=== PATIENT | female | born 1970 | race Caucasian/White ===

== ENCOUNTER → 2021-03-16 | Outpatient (CLI) | payer BC ==
[2021-03-17 12:35] LABS: Cow's Milk IgE Class CLASS 0; Egg White IgE <0.10 kU/L (<0.10); Peanut IgE 0.13 kU/L (<0.10); Potato IgE <0.10 kU/L (<0.10); Potato IgE Class CLASS 0; Soybean IgE <0.10 kU/L (<0.10)
== END | disposition home or self-care (01) ==
LOC: LABWHC1 15:35
PROVIDERS: ATTEND Otolaryngology
DX: J30.89 Other allergic rhinitis (principal)
CPT/HCPCS: 36415; 86003

== ENCOUNTER → 2021-03-16 | Outpatient (CLI) | payer BC ==
[2021-03-16 14:51] VITALS: BP 127/80; PULSE 92; RESP 16; TEMP 98.6
--- NOTE | 2021-03-16 15:57 | P.HPOB ---
History of Present Illness H&P Date: 03/16/21 Chief Complaint: The patient is here for her routine gynecologic exam. This is a 50-year-old with an LMP of 2010. The patient is here to establish with this office. Her is status post vasectomy. She is status post endometrial ablation and has been amenorrheic since then. She has occasional episodes of feeling warm at night, but otherwise has not had significant hot flashes. She has been experiencing some itching at the anterior midline aspect at the apex of the labia minora approximately 3 cm superior to the clitoris. She states this itching has been noticeable for about 2-1/2 years. She does not notice any visual lesion in this area. In the past she has scratched it so much that it did bleed. She is otherwise without complaints. Review of Systems The patient has lost 10 pounds over the last year. This has been intentional. She denies respiratory, cardiac, or G.I. problems. Past Medical History Past Medical History: No Reported History Additional Past Medical History / Comment(s): Food and latex ALLERGIES. 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 History of Any Multi-Drug Resistant Organisms: None Reported Past Surgical History: Section, Tonsillectomy, Uterine Ablation Additional Past Surgical History / Comment(s): section 2. Endometrial ablation 2010. Colonoscopy 2019(next after 5yr). Past Psychological History: No Psychological Hx Reported Smoking Status: Never smoker Past Alcohol Use History: Occasional (3 or 4 per week) Past Drug Use History: None Reported Additional History: She has been since 2010 and this is her second marriage. 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 - Past Family History Father Family Medical History: Cancer, Hyperlipidemia, Hypertension Additional Family Medical History / Comment(s): Bladder cancer. Mother Family Medical History: Diabetes Mellitus Additional Family Medical History / Comment(s): Prediabetic. Maternal grandfather had diabetes. Medications and Allergies Home Medications Medication Instructions Recorded Confirmed Type No Known Home Medications 03/16/21 03/16/21 History Allergies Allergy/AdvReac Type Severity Reaction Status Date / Time morphine Allergy Vomiting Unverified 03/16/21 14:52 Exam Vital Signs Temp Pulse Resp BP Pulse Ox 03/16/21 14:42 98.6 F 92 16 127/80 99 Intake and Output 03/16/21 03/16/21 03/16/21 06:59 14:59 22:59 Other: Weight 65.317 kg Height 5 feet 3-1/2 inches, weight 144 pounds, BMI 25.1. This is a well-developed well-nourished white female who is alert and oriented times 3 in no acute distress. HEENT: Within normal limits. NECK: Supple without mass or thyromegaly. CHEST AND LUNGS: Clear to auscultation. HEART: Regular rate and rhythm. BREASTS: Are without mass or discharge. AXILLARY EXAM: Negative for adenopathy. BACK: Negative for CVA tenderness. ABDOMEN: Soft, nontender, without palpable masses. PELVIC EXAM: External genitalia reveals mild atrophy with no pallor. At the anterior apex where the labia majora come together (approximately 3 cm anterior to the clitoris), there is an area that appears scratched with minimal erythema and it does not appear excoriated. This appears benign without any suspicious- appearing abnormality. There is no ulceration and is is not raised or indurated. Cervix and vagina appear normal with mild atrophy. There is no unusual discharge. There is no evidence of prolapse. The uterus is midposition, nongravid size and nontender. There are no palpable adnexal masses or tenderness. RECTAL EXAM: negative for mass or tenderness and is negative for occult blood. EXTREMITIES: Nontender. IMPRESSION: 1. 50-year-old perimenopausal female whose is status post vasectomy with area of nonspecific vulvitis where she has been experiencing chronic pruritus. This is at the anterior apex of the labia majora in the midline. T his appears benign with no discrete lesion. 2. Amenorrhea following her endometrial ablation in 2010. PLAN: 1. Pap smear cotest was performed. 2. Self breast awareness was discussed with the patient. We have reviewed symptoms that can be associated with inflammatory breast cancer. 3. Screening mammogram is scheduled for 03/18/2021 at [facility]. In order slip was given to the patient for this. 4. Kenalog 0.1% cream twice a day to the area of vulvar pruritus as needed. The patient was instructed to avoid over washing with soap, scratching or rubbing. She can use a moisturizing cream as needed to avoid dryness. If symptoms are not improving she was instructed to call for an appointment for reevaluation and possible biopsy. The electronic prescription will be sent to [facility] pharmacy in [place]. 5. She has not received a Covid vaccination since she had Covid in July 2020 and did have antibodies with a later testing. 6. She was advised to return in one year for her annual well woman exam and as needed.
== END ==
LOC: WWCWWP 14:14
PROVIDERS: ATTEND Obstetrics & Gynecology
DX: L29.2 Pruritus vulvae (principal); N91.2 Amenorrhea, unspecified; Z98.890 Other specified postprocedural states; Z88.5 Allergy status to narcotic agent

== ENCOUNTER → 2022-05-24 | Outpatient (CLI) | payer BC ==
[2022-05-24 09:29] VITALS: BP 107/65; PULSE 80; RESP 19; TEMP 97.8
--- NOTE | 2022-05-24 10:10 | P.HPOB ---
History of Present Illness H&P Date: 05/24/22 Chief Complaint: The patient is here for her routine gynecologic exam and ma mmogram. This is a 52-year-old with an LMP of 2010. Her is status post vasectomy. She is status post endometrial ablation in 2010 and has been amenorrheic since then. She is without gynecologic complaints. She denies any significant hot flashes. She denies any vaginal bleeding. She states she had an episode of pelvic pain in January 2022. This did resolve. At that time she did have a pelvic ultrasound on 01/27/2022 which showed a 1.6 cm uterine fibroid and was otherwise unremarkable. This was done at a [facility] near [address] She was treated last year with Kenalog cream for vulvar itching. She has noticed that she does not have this itching when she eats a low gluten diet. She may notice some itching if she does eat foods with gluten. She'll occasionally uses a hydrocortisone-type cream as prescribed by her PCP, but this is infrequent. Review of Systems The patient's weight has been stable over the last year. She denies r espiratory, cardiac, or G.I. problems. Past Medical History Past Medical History: No Reported History Additional Past Medical History / Comment(s): Chronic neck pain. Food and latex ALLERGIES. 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 History of Any Multi-Drug Resistant Organisms: None Reported Past Surgical History: Section, Tonsillectomy, Uterine Ablation Additional Past Surgical History / Comment(s): section 2. Endometrial ablation 2010. Colonoscopy 2019(next after 5yr). Past Psychological History: No Psychological Hx Reported Smoking Status: Never smoker Past Alcohol Use History: Occasional (2 per week) Past Drug Use History: None Reported Additional History: She has been since 2010 and this is her second marriage. 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 - Past Family History Father Family Medical History: Cancer, Hyperlipidemia, Hypertension Additional Family Medical History / Comment(s): Bladder cancer. Mother Family Medical History: Diabetes Mellitus Additional Family Medical History / Comment(s): Prediabetic. Maternal grandfather had diabetes. Medications and Allergies Home Medications Medication Instructions Recorded Confirmed Type Triamcinolone 0.1% Cream [Kenalog 1 applicatio TOPICAL BID PRN #30 gm 03/16/21 05/24/22 Rx 0.1% Cream] Atorvastatin [Lipitor] 20 mg PO HS 05/24/22 05/24/22 History Allergies Allergy/AdvReac Type Severity Reaction Status Date / Time banana Allergy Rash/Hives Unverified 05/24/22 09:23 kiwi Allergy Unknown Unverified 05/24/22 09:23 latex Allergy Rash/Hives Unverified 05/24/22 09:23 morphine Allergy Vomiting Unverified 05/24/22 09:22 Exam Vital Signs Temp Pulse Resp BP Pulse Ox 05/24/22 09:26 97.8 F 80 19 107/65 99 Intake and Output 05/23/22 05/24/22 05/24/22 22:59 06:59 14:59 Other: Weight 66.224 kg Height 5 feet 4 inches, weight 146 pounds, BMI 25.1. This is a well-developed well-nourished white female who is alert and oriented times 3 in no acute distress. HEENT: Within normal limits. NECK: Supple without mass or thyromegaly. CHEST AND LUNGS: Clear to auscultation. HEART: Regular rate and rhythm. BREASTS: Are without mass or discharge. There is mild right breast tenderness. She states she notices occasional breast tenderness. AXILLARY EXAM: Negative for adenopathy. BACK: Negative for CVA tenderness. ABDOMEN: Soft, nontender, without palpable masses. PELVIC EXAM: Normal external genitalia with mild atrophy. Cervix and vagina appear normal with minimal atrophy. There is no unusual discharge. There is no evidence of prolapse. The uterus is midposition, nongravid size and nontender. There are no palpable adnexal masses or tenderness. RECTAL EXAM: Rectovaginal exam is negative for mass or tenderness and is negative for occult blood. EXTREMITIES: Nontender. IMPRESSION: 1. 52-year-old perimenopausal female who has been amenorrheic since her endometrial ablation, with normal gynecologic exam. 2. History of uterine fibroid measuring 1.6 cm by pelvic ultrasound done on 01/27/2022. PLAN: 1. Pap smear was deferred since she had a normal Pap smear cotest on 03/16/2021. 2. Self breast awareness was discussed with the patient. We have also discussed symptoms associated with inflammatory breast cancer. 3. Screening mammogram will be done today. 4. Osteoporosis prevention was discussed. I have stressed the importance of adequate calcium, vitamin D and regular exercise. Recommended amounts of calcium and vitamin D were also discussed. 5. The patient will keep a symptom calendar if she has recurrent pelvic pains like she did in January of this year. She will call if problems. 6. She was advised to return in one year for her annual well woman exam and as needed.
--- NOTE | 2022-05-25 09:56 | MM ---
Reason for Exam: Screening (asymptomatic). Last mammogram was performed 1 year(s) and 2 month(s) ago. Patient History: Last menstrual period: 03/08/2011 Risk Values: Daniela 5 year model risk: 0.7%. NCI Lifetime model risk: 5.9%. Prior Study Comparison: 03/02/2020 Bilateral MG 3D screening mammo w/cad, [facility]. 03/18/2021 Bilateral MG 3D screening mammo w/cad, [facility]. Tissue Density: The breast tissue is heterogeneously dense. This may lower the sensitivity of mammography. Findings: Analyzed By CAD. There is no suspicious group of microcalcifications or new suspicious mass in either breast. No significant change from prior exams. Overall Assessment: Negative, BI-RAD 1 Management: Screening Mammogram of both breasts in 1 year. A clinical breast exam by your physician is recommended on an annual basis and results should be correlated with mammographic findings. Electronically signed and approved by: Nicholas Thomas D.O.
== END ==
LOC: WWCWWP 09:14
PROVIDERS: ATTEND Obstetrics & Gynecology
DX: Z12.31 Encounter for screening mammogram for malignant neoplasm of breast (principal); Z01.419 Encounter for gynecological examination (general) (routine) without abnormal findings; Z87.42 Personal history of other diseases of the female genital tract; Z88.5 Allergy status to narcotic agent; Z91.040 Latex allergy status; Z91.018 Allergy to other foods
CPT/HCPCS: 77063; 77067

== ENCOUNTER → 2023-05-30 | Outpatient (CLI) | payer BC ==
[2023-05-30 09:18] VITALS: BP 109/77; PULSE 83; RESP 17; TEMP 97.8
--- NOTE | 2023-05-30 09:56 | P.HPOB ---
History of Present Illness H&P Date: 05/30/23 Chief Complaint: The patient is here for her routine gynecologic exam and ma mmogram. This is a 53-year-old with an LMP of 2010. Her is status post vasectomy. She has been amenorrheic since her 2010 endometrial ablation. She is without gynecologic complaints. She denies hot flashes. Review of Systems The patient has gained 12 pounds over the last year. She would like to lose weight. She denies respiratory, cardiac, or G.I. problems. Past Medical History Past Medical History: No Reported History Additional Past Medical History / Comment(s): Chronic neck pain. Food and latex ALLERGIES. 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 History of Any Multi-Drug Resistant Organisms: None Reported Past Surgical History: Section, Tonsillectomy, Uterine Ablation Additional Past Surgical History / Comment(s): section 2. Endometrial ablation 2010. Colonoscopy 2019(next after 5yr). Past Psychological History: No Psychological Hx Reported Smoking Status: Never smoker Past Alcohol Use History: Occasional (3-4 drinks per month.) Past Drug Use History: None Reported Additional History: She has been since 2010 and this is her second m arriage. 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 - Past Family History Father Family Medical History: Cancer, Hyperlipidemia, Hypertension Additional Family Medical History / Comment(s): Bladder cancer. Mother Family Medical History: Diabetes Mellitus Additional Family Medical History / Comment(s): Prediabetic. Maternal grandfather had diabetes. Medications and Allergies Home Medications Medication Instructions Recorded Confirmed Type Triamcinolone 0.1% Cream [Kenalog 1 applicatio TOPICAL BID PRN #30 gm 03/16/21 05/30/23 Rx 0.1% Cream] Atorvastatin [Lipitor] 20 mg PO HS 05/24/22 05/30/23 History Allergies Allergy/AdvReac Type Severity Reaction Status Date / Time banana Allergy Rash/Hives Unverified 05/30/23 09:11 kiwi Allergy Unknown Unverified 05/30/23 09:11 latex Allergy Rash/Hives Unverified 05/30/23 09:11 morphine Allergy Vomiting Unverified 05/30/23 09:11 Exam Vital Signs Temp Pulse Resp BP Pulse Ox 05/30/23 09:12 97.8 F 83 17 109/77 98 Intake and Output 05/29/23 05/30/23 05/30/23 22:59 06:59 14:59 Other: Weight 71.668 kg Height 5 feet 4 inches, weight 158 pounds, BMI 27.1. This is a well-developed well-nourished white female who is alert and oriented times 3 in no acute distress. HEENT: Within normal limits. NECK: Supple without mass or thyromegaly. CHEST AND LUNGS: Clear to auscultation. HEART: Regular rate and rhythm. BREASTS: Are without mass or discharge. AXILLARY EXAM: Negative for adenopathy. BACK: Negative for CVA tenderness. ABDOMEN: Soft, nontender, without palpable masses. PELVIC EXAM: Normal external genitalia with minimal atrophy. Cervix and vagina appear normal with minimal atrophy. There is no unusual discharge. There is no evidence of prolapse. The uterus is midposition, nongravid size and nontender. There are no palpable adnexal masses or tenderness. RECTAL EXAM: Rectovaginal exam is negative for mass or tenderness and is negative for occult blood. EXTREMITIES: Nontender. IMPRESSION: 1. 53-year-old perimenopausal female whose is status post vasectomy, with normal gynecologic exam. 2. Amenorrhea since her endometrial ablation in 2010. 3. History of small uterine fibroid by ultrasound in 2021 measuring 1.6 cm, which is asymptomatic. PLAN: 1. Pap smear was deferred since she had a negative Pap smear cotest on 03/16/2021. 2. Screening mammogram will be done today. 3. Osteoporosis prevention was discussed. I have stressed the importance of adequate calcium, vitamin D and regular exercise. Recommended amounts of calcium and vitamin D were also discussed. 4. Weight control was discussed with the patient. I have stressed the importance of good nutrition, adequate fiber, regular exercise. She states she recently had thyroid screening through her PCP. 5. She was advised to return in one year for her annual well woman exam and as needed.
--- NOTE | 2023-05-31 16:06 | MM ---
Reason for Exam: Screening (asymptomatic). Last screening mammogram was performed 12 month(s) ago. Patient History: Menarche at age 14. First Full-Term at age 25. Risk Values: Daniela 5 year model risk: 0.9%. NCI Lifetime model risk: 7.8%. Prior Study Comparison: 03/02/2020 Bilateral MG 3D screening mammo w/cad, [facility]. 03/18/2021 Bilateral MG 3D screening mammo w/cad, [facility]. 05/24/2022 Bilateral MG 3D screening mammo w/cad, [facility]. Tissue Density: The breast tissue is extremely dense which could obscure a lesion on mammography. Findings: Analyzed By CAD. Pattern appears symmetrical and stable. No significant interval change is evident. Benign calcification is present bilaterally. No suspicious groups of microcalcifications, spiculated or lobular masses, architectural distortion or other secondary signs of malignancy are mammographically apparent. Overall Assessment: Benign, BI-RAD 2 Management: Screening Mammogram of both breasts in 1 year. A negative mammogram report should not preclude additional follow up of suspicious palpable abnormalities. Patient should continue monthly self breast exam. A clinical breast exam by your physician is recommended on an annual basis and results should be correlated with mammographic findings. Electronically signed and approved by: Bear Ramsay D.O. Radiologis
== END ==
LOC: WWCWWP 09:05
PROVIDERS: ATTEND Obstetrics & Gynecology
DX: Z12.31 Encounter for screening mammogram for malignant neoplasm of breast (principal); Z12.39 Encounter for other screening for malignant neoplasm of breast; N91.2 Amenorrhea, unspecified; G89.29 Other chronic pain; Z87.42 Personal history of other diseases of the female genital tract; Z78.0 Asymptomatic menopausal state; Z91.018 Allergy to other foods; Z91.040 Latex allergy status; Z88.5 Allergy status to narcotic agent; Z86.018 Personal history of other benign neoplasm
CPT/HCPCS: 77063; 77067

== ENCOUNTER → 2024-08-20 | Outpatient (CLI) | payer BC ==
[2024-08-20 15:17] VITALS: BP 121/64; PULSE 70; RESP 16; TEMP 97.9
--- NOTE | 2024-08-20 16:38 | P.HPOB ---
History of Present Illness H&P Date: 08/20/24 Chief Complaint: The patient is here for her routine gynecologic exam and ma mmogram. This is a 54-year-old with an LMP of 2010. The patient's is status post vasectomy. Following her 2011 endometrial ablation, she has been amenorrheic. She denies any significant hot flashes. She has noticed some facial redness and was diagnosed with perioral dermatitis by her director of neighborhood service center. She is wondering if this could be related to hormonal changes. She is wondering if she has gone through the menopausal change. Review of Systems The patient has lost 11 pounds over the last year. She denies respiratory, cardiac, or G.I. problems. Past Medical History Past Medical History: Liver Disease Additional Past Medical History / Comment(s): Chronic neck pain. Fatty liver. Food and latex ALLERGIES. 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 History of Any Multi-Drug Resistant Organisms: None Reported Past Surgical History: Section, Tonsillectomy, Uterine Ablation Additional Past Surgical History / Comment(s): section 2. Endometrial ablation 2010. Colonoscopy 2019(next after 5yr). Past Psychological History: No Psychological Hx Reported Smoking Status: Never smoker Past Alcohol Use History: Occasional (2-3 drinks per month.) Past Drug Use History: None Reported Additional History: She has been since 2010 and this is her second marri age. 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 - Past Family History Father Family Medical History: Cancer, Hyperlipidemia, Hypertension, Rheumatoid Arthritis (RA) Additional Family Medical History / Comment(s): Bladder cancer. Paternal grandmother had rheumatoid arthritis. Mother Family Medical History: Diabetes Mellitus Additional Family Medical History / Comment(s): Prediabetic. Maternal grandfather had diabetes. Medications and Allergies Home Medications Medication Instructions Recorded Confirmed Type Multivitamin [Multivitamins Adult 1 tablet PO DAILY 08/20/24 08/20/24 History Gummies] Allergies Allergy/AdvReac Type Severity Reaction Status Date / Time banana Allergy Rash/Hives Unverified 08/20/24 15:13 kiwi Allergy Unknown Unverified 08/20/24 15:13 latex Allergy Rash/Hives Unverified 08/20/24 15:13 morphine Allergy Vomiting Unverified 08/20/24 15:13 Exam Vital Signs Temp Pulse Resp BP Pulse Ox 08/20/24 15:14 97.9 F 70 16 121/64 99 Intake and Output 08/20/24 08/20/24 08/20/24 06:59 14:59 22:59 Other: Weight 66.678 kg Height 5 feet 4 inches, weight 147 pounds, BMI 25.2. This is a well-developed well-nourished white female who is alert and oriented times 3 in no acute distress. HEENT: There is facial redness which is symmetric extending from the cheekbones down to the chin area. HEENT is otherwise within normal limits. NECK: Supple without mass or thyromegaly. CHEST AND LUNGS: Clear to auscultation. HEART: Regular rate and rhythm. BREASTS: Are without mass or discharge. AXILLARY EXAM: Negative for adenopathy. BACK: Negative for CVA tenderness. ABDOMEN: Soft, nontender, without palpable masses. PELVIC EXAM: Normal external genitalia with minimal atrophy. Cervix and vagina appear normal minimal atrophy. There is no unusual discharge. There is no evidence of prolapse. The uterus is midposition, nongravid size and nontender. There are no palpable adnexal masses or tenderness. RECTAL EXAM: Rectovaginal exam is negative for mass or tenderness and is negative for occult blood. EXTREMITIES: Nontender. IMPRESSION: 1. 54-year-old perimenopausal female whose is status post vasectomy, with amenorrhea since her 2010 endometrial ablation, with normal gynecologic exam. 2. History of a small uterine fibroid measuring 1.6 cm by ultrasound in 2021 which is not palpable and is asymptomatic. PLAN: 1. Pap smear was deferred since she had a negative Pap smear cotest on 03/16/2021. 2. Self breast awareness was discussed with the patient. We have also discussed symptoms associated with inflammatory breast cancer. 3. Screening mammogram was done today. 4. Blood tests will include FSH and estradiol. The order slip was given to the patient for this. Will use this to determine her menopausal status since we cannot look at her menstrual periods to determine this after her endometrial ablation. We have discussed how menopausal hormonal changes are not commonly known to cause facial skin changes such as the redness she has been experiencing. She can continue to see her director of neighborhood service center regarding this is needed. 5. She was advised to return in one year for her annual well woman exam.
[2024-08-21 03:47] LABS: Estradiol 89.9 pg/mL
[2024-08-21 04:52] LABS: Follicle Stimulating Hormone 8.1 mIU/mL
--- NOTE | 2024-08-21 08:29 | MM ---
Reason for Exam: Screening (asymptomatic). Last mammogram was performed 1 year(s) and 3 month(s) ago. Patient History: Menarche at age 14. First Full-Term at age 25. Risk Values: Daniela 5 year model risk: 1.0%. NCI Lifetime model risk: 7.7%. Prior Study Comparison: 03/18/2021 Bilateral MG 3D screening mammo w/cad, [facility]. 05/24/2022 Bilateral MG 3D screening mammo w/cad, [facility]. 05/30/2023 Bilateral MG 3D screening mammo w/cad, [facility]. Tissue Density: The breasts are heterogeneously dense, which may obscure small masses. Findings: Analyzed By CAD. There is enlarging 14 mm oval obscured lesion in the posterior upper outer quadrant right breast. Overall Assessment: Incomplete: need additional imaging evaluation, BI-RAD 0 Management: Diagnostic Breast Ultrasound of the right breast. Advise targeted ultrasound right breast. Patient should continue monthly self-breast exams. A clinical breast exam by your physician is recommended on an annual basis. This exam should not preclude additional follow-up of suspicious palpable abnormalities. Note on Daniela scores and lifetime risk: 1. A Daniela score greater than 3% is considered moderate risk. If this is the case, consider specialist referral to assess eligibility for a risk reducing agent. 2. If overall lifetime risk for the development of breast cancer is 20% or higher, the patient may qualify for future screening with alternating mammogram and breast MRI. [facility], , 08/21/2024 8:26 AM. Electronically signed and approved by: Solis Jacome M.D.
--- NOTE | 2024-09-03 13:41 | P.PN ---
Progress Note - Text Progress Note Date: 09/03/24 OUTPATIENT FOLLOW-UP NOTE TEST(S)/RESULTS: Test results from 08/20/2024 include FSH of 8.1 and estradiol of 89, consistent with premenopausal levels. Mammogram did require a right breast workup which was done and was probably benign. Bilateral diagnostic mammogram in 1 year was recommended. METHOD OF NOTIFICATION: A message with these results was left on the patient's voicemail on 09/03/2024. PATIENT COMMENTS: DIAGNOSIS: Probably benign mammogram with right breast workup and blood tests consistent with premenopausal levels. DISCUSSION: She was instructed to call if she has any questions about this. PLAN: As above.
== END ==
LOC: WWCWWP 14:43
PROVIDERS: ATTEND Obstetrics & Gynecology
DX: Z12.31 Encounter for screening mammogram for malignant neoplasm of breast (principal); R92.333 Mammographic heterogeneous density, bilateral breasts; Z78.0 Asymptomatic menopausal state; Z87.42 Personal history of other diseases of the female genital tract; Z91.018 Allergy to other foods; Z91.040 Latex allergy status; Z88.5 Allergy status to narcotic agent
CPT/HCPCS: 77063; 77067; 82670; 83001

== ENCOUNTER → 2024-08-29 | Outpatient (CLI) | payer BC ==
--- NOTE | 2024-08-29 11:26 | USB ---
Reason for Exam: Additional evaluation requested from abnormal screening. Patient History: Menarche at age 14. First Full-Term at age 25. Risk Values: Daniela 5 year model risk: 1.0%. NCI Lifetime model risk: 7.7%. Technique: Method: Targeted. Prior Study Comparison: 05/24/2022 Bilateral MG 3D screening mammo w/cad, [facility]. 05/30/2023 Bilateral MG 3D screening mammo w/cad, [facility]. 08/20/2024 Bilateral MG 3D screening mammo w/cad, [facility]. Findings: The upper outer quadrant of the right breast, the axilla of the right breast and the retroareolar of the right breast were scanned. Targeted ultrasound upper quadrant right breast 9:00 to 12:00 including scanning of the subareolar region and axilla. There is a benign cyst at 10:00, 6 cm from the nipple measuring 1.4 x 1.3 x 0.6 cm. Surrounding dense tissue. Likely mammographic correlate. One-year follow-up can be performed. Overall Assessment: Probably benign, BI-RAD 3 Management: Diagnostic Mammogram of both breasts in 1 year. Total one year follow-up right breast and annual exam of the left breast. A clinical breast exam by your physician is recommended on an annual basis and results should be correlated with mammographic findings. This exam should not preclude additional follow-up of suspicious palpable abnormalities. Results were given to the patient verbally at the time of exam. [facility], , 08/29/2024 11:23 AM. Electronically signed and approved by: Yadira Hazel M.D. Radiologist
== END | disposition home or self-care (01) ==
LOC: RADUSWWP 10:31
PROVIDERS: ATTEND Obstetrics & Gynecology
DX: R92.8 Other abnormal and inconclusive findings on diagnostic imaging of breast (principal)

== ENCOUNTER → 2025-02-04 | Outpatient (CLI) | payer BC ==
--- NOTE | 2025-02-04 08:30 | USB ---
Reason for Exam: Follow-up at short interval from prior study. Patient History: Menarche at age 14. First Full-Term at age 25. Risk Values: Daniela 5 year model risk: 1.0%. NCI Lifetime model risk: 7.7%. Technique: Method: Whole Breast Handheld. Prior Study Comparison: 05/24/2022 Bilateral MG 3D screening mammo w/cad, [facility]. 05/30/2023 Bilateral MG 3D screening mammo w/cad, [facility]. 08/20/2024 Bilateral MG 3D screening mammo w/cad, [facility]. Findings: The whole breast of the right breast, the axilla of the right breast and the retroareolar of the right breast were scanned. A complete US of all four quadrants of the breast, axilla, and retro-areolar region were reviewed. At the 10:00 position, 6 cm from the nipple, there is a benign 1.4 cm cyst, slightly increased in overall size from prior as it is more rounded in appearance now. No suspicious internal features. At the 1:00 position, 4 cm from the nipple, there is a benign 7 mm cyst. At the 9:00 position, 3 cm from nipple, there are 2 adjacent cysts. One is a simple cyst measuring 8 mm. The second is an oval complex cyst measuring 10 x 8 x 4 mm. There is either clumped up internal debris versus mural based nodularity for which short interval follow-up is recommended. No other solid or cystic lesion or axillary adenopathy. Overall Assessment: Probably benign, BI-RAD 3 Management: Diagnostic Mammogram of both breasts in 6 months. Diagnostic Breast Ultrasound of the right breast. In order to reassess the 9:00 complex versus complicated cyst. A clinical breast exam by your physician is recommended on an annual basis and results should be correlated with mammographic findings. This exam should not preclude additional follow-up of suspicious palpable abnormalities. Results were given to the patient verbally at the time of exam. [facility], , 02/04/2025 8:27 AM. Electronically signed and approved by: Yadira Hazel M.D. Radiologist
== END | disposition home or self-care (01) ==
LOC: RADUSWWP 07:06
PROVIDERS: ATTEND Family Medicine
DX: N60.01 Solitary cyst of right breast (principal)